=== PATIENT | male | born 1975 | race Hispanic/Latino ===

== ENCOUNTER 2022-12-22 11:49 | Emergency (ER) | payer OTHER ==
[~2022-12-22] VITALS: Ht 185.4 cm; Wt 120.2 kg
[2022-12-22 11:59] VITALS: O2SAT 97
== END 2022-12-22 12:27 | disposition home or self-care (01) ==
LOC: FSED 11:52
DX: S00.83XA Contusion of other part of head, initial encounter (principal); R51.9 Headache, unspecified; W22.8XXA Striking against or struck by other objects, initial encounter; Y92.89 Other specified places as the place of occurrence of the external cause
CPT/HCPCS: 70450; 99283